=== PATIENT | male | born 1955 | race Caucasian/White ===

== ENCOUNTER 2016-07-24 18:11 | Emergency (ER) | payer MEDICAID, OTHER ==
[~2016-07-24] VITALS: Ht 185.4 cm; Wt 85.9 kg
[~2016-07-24 18:11] MED LIST: AMIO100T4 PO; ATOR10TA84 PO; BUME1TAB30 PO; CARI350 PO; IPRA4AER IH; LORA10TA7 PO; LORA1TAB3 PO; OMEP20 PO; OXYC-158 PO; RIVA20TA PO; SPIR25 PO; TIOT185 IH
[2016-07-24 18:21] VITALS: BP 107/74
== END 2016-07-24 19:36 | disposition home or self-care (01) ==
LOC: EMS 18:12
DX: Z46.6 Encounter for fitting and adjustment of urinary device (principal); I11.0 Hypertensive heart disease with heart failure; I50.9 Heart failure, unspecified; J44.9 Chronic obstructive pulmonary disease, unspecified; I48.91 Unspecified atrial fibrillation; F17.210 Nicotine dependence, cigarettes, uncomplicated
CPT/HCPCS: 99281